=== PATIENT | male | born 2000 | race African-American/Black ===

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

== ENCOUNTER 2022-10-22 20:25 | Emergency (ER) | payer OTHER ==
[~2022-10-22] VITALS: Ht 175.3 cm; Wt 65.2 kg
[2022-10-22 20:59] VITALS: BP 127/89
== END 2022-10-22 22:34 | disposition left against medical advice (07) ==
LOC: ER 20:25
DX: Z53.21 Procedure and treatment not carried out due to patient leaving prior to being seen by health care provider (principal)
CPT/HCPCS: 99281